=== PATIENT | female | born 1935 | race Caucasian/White ===

== ENCOUNTER 2017-09-13 20:08 | Emergency (ER) | payer MEDICARE, OTHER ==
[~2017-09-13] VITALS: Ht 162.6 cm; Wt 88.0 kg
[~2017-09-13 20:08] MED LIST: ADA30 PO; BAY PO; CLOPIDOGREL PO; CORE25 PO; GLU500 PO; NEU300 PO; NEXIUM PO; T3 PO; ZOC20 PO; [UNRECOGNIZED DRUG - OTHER] PO
[2017-09-13 20:16] VITALS: Ht 162.6 cm; Wt 88.0 kg
[2017-09-13 23:25] VITALS: BP 134/78
== END 2017-09-13 23:25 | disposition home or self-care (01) ==
LOC: ED 20:08
DX: I10 Essential (primary) hypertension (principal); E11.9 Type 2 diabetes mellitus without complications; Z86.73 Personal history of transient ischemic attack (TIA), and cerebral infarction without residual deficits

== ENCOUNTER 2019-02-16 11:53 | Inpatient (IN) | payer OTHER, MEDICARE ==
[~2019-02-16] VITALS: Ht 154.9 cm; Wt 84.9 kg
[2019-02-16 12:04] VITALS: Ht 154.9 cm; Wt 84.9 kg
--- NOTE | 2019-02-16 12:11 | NUR ---
BIB MEDIC S/P CP ONSET THIS AM AT HOME. PT GIVEN NTG IN FIELD. PT STATES VIA DAUGHTER MEDICAL ADMINISTRATIVE ASSISTANT THAT HER PAIN HAS IMPROVED. COMFORT MEASURES AND SUPPORTIVE CARE INITIATED. DR. BARBER AT FOR EVAL. AGENCY DOCUMENTATION DONE BY Staff Name/Title - :TRAMAINE LOVE RN [employer] User ID - :[id number] Agency Name - :CERTIFIED Time Documented - From - :0700 To - :1900
--- NOTE | 2019-02-16 12:20 | NUR ---
[facility] [phone] CARDIOLOGY (SEEN PRIOR, NOT REGULARLY) DR. COSMO LORENZO
[2019-02-16 12:33] LABS: PLATELET COUNT 147 x10^3mcL (130-400)
[2019-02-16 12:43] LABS: RED CELL DISTRIBUTION WIDTH 15.8 % (11.5-14.5)
[2019-02-16 12:49] LABS: CARBON DIOXIDE 21.9 mmol/L (21-32); CHLORIDE SERUM 107 mmol/L (98-107); CREATININE SERUM 0.8 mg/dL (0.6-1.0); GLUCOSE SERUM 126 mg/dL (74-106); POTASSIUM SERUM 3.8 mmol/L (3.5-5.1); SODIUM SERUM 142 mmol/L (136-145)
[2019-02-16 12:51] LABS: ALBUMIN 3.8 g/dL (3.4-5.0); ALKALINE PHOSPHATASE 65 U/L (46-116); ALT/SGPT 39 U/L (14-59); AST/SGOT 49 U/L (15-37); BILIRUBIN TOTAL 0.9 mg/dL (0.20-1.00)
[2019-02-16 13:04] LABS: BAND NEUTROPHIL 2 % (0-10); SEGMENTED NEUTROPHILS 78 % (37-75)
[2019-02-16 13:05] LABS: ATYPICAL LYMPH 0 %; BASOPHIL 0 % (0-2); MONOCYTE 4 % (0-7); PLATELET MORPHOLOGY PLATELETS DECREASED; rbc morphology (normal/abnorm) ABNORMAL (NORMAL)
--- NOTE | 2019-02-16 13:22 | NUR ---
PT RESTING COMFORTABLY AT THIS TIME. TO CONTINUE TO MONITOR. NO DISPO PRESENTLY.
--- NOTE | 2019-02-16 15:27 | NUR ---
ST CATH URINE OBTAINED AND SENT. TO CONTINUE TO MONITOR.,
[2019-02-16 15:42] LABS: UA SPECIFIC GRAVITY 1.015 (1.005-1.035); microscopic required? YES; urine erythrocyte 2+ (NEGATIVE)
--- NOTE | 2019-02-16 16:30 | NUR ---
PT SLEEPING AT THIS TIME. TO CONTINUE TO MONITOR.
--- NOTE | 2019-02-16 17:27 | NUR ---
REPORT CALLED TO DAMON BUSTAMANTE. PT REMAINS ASYMPTOMATI AT PRESENT. NO FURTHER CP THROUGHOUT ED COURSE.
[2019-02-16 18:02] VITALS: BP 126/56
--- NOTE | 2019-02-16 18:06 | NUR ---
RECEIVED PT FROM ED VIA KIMO. ORIENTED PT TO ROOM AND SURROUNDINGS. IV NOTED TO RFA PATENT AND INTACT. TELE 3 PLACED ON PT READING NSR. INSTRUCTED PT ON THE USE OF CALL LIGHT FOR ASSISTANCE. ENDORSD PT TO PRIMARY NURSE DAMON
--- NOTE | 2019-02-16 19:15 | NUR ---
CARE ASSUMED FROM OUTGOING RN. PT RESTING COMFORTABLY IN BED. NO ACUTE DISTRESS NOTED. EVEN AND UNLABORED RESPIRATIONS NOTED ON RA. ON TELE# 3 READING SR 90. IV PATENT AND INTACT RUNNING FLUIDS PER EMAR. DENIES ANY PAIN AT THIS TIME. BED IN LOWEST POSITION. SIDE RAILS UPX2. CALL LIGHT WITHIN REACH. WILL CONTINUE TO MONITOR.
[2019-02-16] MEDS ORDERED: CELEXA40 MG PO (20:04)
[2019-02-16] MEDS ORDERED: AVAPRO150 MG PO (20:06)
[2019-02-16 20:38] VITALS: BP 144/68
[2019-02-16] MEDS ORDERED: VITAMIN B12 PO (22:40)
--- NOTE | 2019-02-17 01:08 | NUR ---
PT RESTING COMFORTABLY IN BED. NO ACUTE DISTRESS NOTED. EVEN AND UNLABORED RESPIRATIONS ON RA. ON TELE# 3 READING SR 81. IV PATENT AND INTACT RUNNING FLUIDS PER EMAR. DENIES ANY PAIN AT THIS TIME. BED IN LOWEST POSITION. SIDE RAILS UPX2. CALL LIGHT WITHIN REACH. WILL CONTINUE TO MONITOR.
[2019-02-17 05:44] VITALS: BP 140/63
--- NOTE | 2019-02-17 06:26 | NUR ---
PT CONFUSED, REMOVED TELE MONITOR, ARM BAND, IV. NO BLEEDING NOTED TO IV SITE. IV CATHETER INTACT. REORIENTED PT TO HOSPITAL ENVIRONMENT. REAPPLIED TELE MONITOR. APPLIED NEW ARM BAND. IV STARTED TO RFA 22G WITH GOOD BLOOD RETURN AND FLUSHING WELL. FLUIDS RESTARTED PER EMAR. BED IN LOWEST POSITION. SIDE RAILS UPX2. CALL LIGHT WITHIN REACH. WILL CONTINUE TO MONITOR.
--- NOTE | 2019-02-17 06:42 | NUR ---
PT RESTING IN BED COMFORTABLY AT THIS TIME. NO ACUTE DISTRESS NOTED. ON TELE #3 READING SR. NEW IV PATENT AND INTACT, RUNNING FLUIDS PER EMAR. ALL NEEDS TENDED TO AND MET. ALL SCHEDULED MEDICATIONS GIVEN. BLOOD SUGAR CHECKED AND COVERED PER SLIDING SCALE. BED IN LOWEST POSITION. SIDE RAILS UPX2. CALL LIGHT WITHIN REACH. WILL ENDORSE TO ONCOMING SHIFT.
--- NOTE | 2019-02-17 08:00 | NUR ---
RECEIVED PATIENT FROM NIGHT NURSE. AWAKE, ALERT AND APPEARS ORIENTED. MONITOR SHOWING SINUS RHYTHM; RATE 80'S. NO ECTOPIES NOTED. IV INFUSING NS AT 125 ML/HR. PATIENT AMBULATED TO BATHROOM AND BACK TO BED. NOTED SOB ON EXERTION. NOW SITTING UP INB ED FOR BREAKFAST. DAUGHTER AT BEDSIDE. IV INFUSION RATE DECREASED TO 50 ML/HR PER NEW ORDERS.
[2019-02-17 08:42] LABS: BASOPHIL % 0.2 % (0-2)
[2019-02-17 08:46] LABS: CARBON DIOXIDE 23.6 mmol/L (21-32); CHLORIDE SERUM 108 mmol/L (98-107); CREATININE SERUM 0.8 mg/dL (0.6-1.0); GLUCOSE SERUM 133 mg/dL (74-106); POTASSIUM SERUM 3.6 mmol/L (3.5-5.1); SODIUM SERUM 142 mmol/L (136-145)
[2019-02-17 08:49] LABS: PLATELET COUNT 117 x10^3mcL (130-400); RED CELL DISTRIBUTION WIDTH 15.5 % (11.5-14.5)
[2019-02-17 08:52] VITALS: BP 127/60
--- NOTE | 2019-02-17 10:04 | NUR ---
AT 0900 - PATIENT SAYS THAT HER DAUGHTER GAVE HER HER MORNING MEDS. CALL PLACED FOR DAUGHTER TO VERIFY AND INFORM HER THAT PATIENT IS NOT TO TAKE OUTSIDE MEDS WHILE IN HOSPITAL. ALSO INSTRUCTED PATIENT ABOUT IMPORTANCE OF ONLY TAKING MEDS THAT ARE PRESCRIBED BY HOSPITAL DOCTORS AND ADMINSITERED BY HOSPITAL STAFF. IV FROM R EDELT FOUND TO HAVE FALLEN OUT. AT 0920 - IV RESITED IN R HAND AND IV INFUSING RESUMED AT 50ML/HR. PATIENT INSTRUCTED TO ALWAYS CALL FOR NRUSE AND NOT TO ATTEMPT GETTING OUT OF BED ALONE.
--- NOTE | 2019-02-17 10:30 | NUR ---
PHYSICAL THERPY WITH PATIENT.
[2019-02-17 11:56] VITALS: BP 132/46
--- NOTE | 2019-02-17 12:09 | NUR ---
SPOKE WITH SCOTT CRUZ AND RELAYED THE RESULTS OF THE BLOOD CULTURE.
--- NOTE | 2019-02-17 12:22 | NUR ---
PATIENT'S DAUGHTER NOW VISITING. SHE SAYS THAT SHE DID NOT GIVEN ANY MEDS TO HER MOTHER. SHE SAYS THAT PATIENT GETS CONFUSED. SO, SCHEDULED MORNIGN MEDS ADMINISTERED PER EMAR.
--- NOTE | 2019-02-17 14:10 | NUR ---
PATIENT STATUS CHANGED TO MED-SURG. PATIENT TAKEN OFF CARDIAC MONITORING.
[2019-02-17 16:48] VITALS: BP 125/64
--- NOTE | 2019-02-17 18:15 | NUR ---
AT 1600 - PATIENT PULLED OUT IV. RESITED IN RFA. WRAPPED AND SECURED. IV INFUSION OF NS RESUMED AT 50 ML/HR. AT 1625 - IV ROCEPHIN IN PROGRESS. PATIENT IS CALM AND PLEASANT BUT WITH PERIODS OF CONFUSION. AT 1735 - PATIENT PULLED OUT IV. WILL EAT DINNER NOW AND IV TO BE RESITED AFTER DINNER AND WNEH PATIENT GETS SITTER. AT 1810 - PATIENT IS ORIENTED TO PERSON AND PLACE. CALM BUT CONFUSED AND FORGETFUL. AMBULATES TO BATHROOM WITH ASSISTANCE. WILL ENDORSE CARE TO NIGHT NURSE.
--- NOTE | 2019-02-17 19:30 | NUR ---
PT IS A/O x2. CONFUSED WHERE SHE IS AT AND YEAR. MED SURG. DENIES ANY CHEST PAIN OR PRESSURE. PULSES ARE PRESENT. NO EDEMA NOTED. LUNGS CLEAR IN ALL FEILDS. ON RA, DENIES ANY SOB. EQUAL CHEST RISE AND FALL. NO SIGN OF RESP DISTRESS. BOWEL SOUNDS PRESENT X4. DENIES ABD PAIN OR DISTRESS. SKIN WARM AND INTACT. DENIES ANY PAIN AT THIS TIME. NO IV ACCESS AT THIS TIME. WILL ATTEMPT TO REINSERT AND IV. BED IS AT LOWEST SETTING. CALL LIGHT WITHIN REACH. BED ALARM ON. WILL CONTINUE TO MONITOR.
[2019-02-17 20:09] VITALS: BP 103/42
--- NOTE | 2019-02-18 00:27 | NUR ---
PT RESTING IN BED WITH BOTH EYES CLOSED. BREATHING EVEN AND UNLABORED. NO SIGN OF DISTRESS NOTED. BED IS AT LOWEST SETTING. CALL LIGHT WITHIN REACH. WILL CONTINUE TO MONITOR.
[2019-02-18 05:55] VITALS: BP 132/63
[2019-02-18 06:31] LABS: BASOPHIL % 0.4 % (0-2)
--- NOTE | 2019-02-18 06:33 | NUR ---
PT IS RESTING IN BED. DENIES ANY PAIN OR DISTRESS. PT AMBULATED TO THE BATHROOM WITH PATRICK MITTAL. PT TOLERATED WELL. SLIGHT SWAYING GAIT NOTED. PT WAS SALINE LOCKED AT THIS TIME D/T PT PULLING ON LINE. WILL RECONNECT ONCE PT AGREES NOT TO PULL ON LINE AND PULL OUT IV. NO ACUTE EVENT OCCURED AT NIGHT. BED IS AT LOWEST SETTING. CALL LIGHT WITHIN REACH. BED ALARM IS ON. WILL ENDORSE TO AM NURSE.
[2019-02-18 06:46] LABS: CALCIUM 8.3 mg/dL (8.5-10.1); CARBON DIOXIDE 27.5 mmol/L (21-32); CHLORIDE SERUM 108 mmol/L (98-107); CREATININE SERUM 0.6 mg/dL (0.6-1.0); GLUCOSE SERUM 120 mg/dL (74-106); POTASSIUM SERUM 3.2 mmol/L (3.5-5.1); SODIUM SERUM 145 mmol/L (136-145)
[2019-02-18 06:49] LABS: PLATELET COUNT 100 x10^3mcL (130-400); RED CELL DISTRIBUTION WIDTH 15.9 % (11.5-14.5)
--- NOTE | 2019-02-18 07:15 | NUR ---
PT RECIEVED RESTING IN BED WITH NO C/O DISTRESS OR SOB. A/O X3. NO MEDRANO OR DIZZINESS NOTED. LUNGS CTAB, IV NOT INTACT AND NOT PATENT IN LAC, REMOVED WITH CATHETER IN PLACE, NO REDNESS OR INFLAMMATIONS NOTED. NEW IV STARTED IN RIGHT HAND 22 GUAGE. NO REDNESS OR INFLAMMATION NOTED. NS 50ML/HR RUNNING.SAFETY PRECAUTIONS IN PLACE, CALL LIGHT WITHIN REACH, WILL MONITOR.
[2019-02-18 08:23] VITALS: BP 117/69
--- NOTE | 2019-02-18 11:59 | NUR ---
ANTHONY PARKER AWARE OF PT POTTASIUM LEVEL3.2, NEW ORDER RECIEVEDAND CARRIED OUT.
--- NOTE | 2019-02-18 13:06 | NUR ---
NikkiT. NOTES PATIENT REFUSED TO BE SEEN BY P.T., STATES NOT FEELING AND TOO TIRED, ATTEMPTED MULTIPLE TIMES FOR PATIENT TO PARTICIPATE BUT CONTINUES TO REFUSED, PATIENT IS A/Ox3.
[2019-02-18 16:45] VITALS: BP 131/51
--- NOTE | 2019-02-18 19:30 | NUR ---
PT IS A/O x2. ABLE TO COMMUNICATE NEEDS AND FOLLOW SIMPLE COMMANDS. ON MED SURG. DENIES ANY CHEST PAIN OR PRESSURE. PULSES ARE PRESENT. NO EDEMA NOTED. LUNGS CLEAR IN ALL FEILDS. ON RA, DENIES ANY SOB. EQUAL CHEST RISE AND FALL. NO SIGN OF RESP DISTRESS. BOWEL SOUND PRESENT X4. DENIES ANY ABD PAIN OR DISTRESS. SKIN WARM AND INTACT. DENIES ANY PAIN AT THIS TIME. IV ON RH INTACT AND PATENT. NO SIGN OF IRRITATION OR INFILTRATION NOTED. BED IS A LOWEST SETTING. CALL LIGHT WITHIN REACH. BED ALARM IS ON FOR PT SAFETY. WILL CONTINUE TO MONITOR.
--- NOTE | 2019-02-18 20:04 | NUR ---
PT STABLE AT THIS TIME WITH NO C/O PAIN, DISTRESS, OR SOB. TOLERATED ALL CARES WELL.IV INTACT AND PATENT WITH NO REDNESS OR INFLAMMATION NOTED. SAFETY PRECAUTIONS IN PLACE, CALL LIGHT WITHIN REACH, WILL ENDORSE CARE TO NIGHT NURSE.
[2019-02-18 21:38] VITALS: BP 128/75
--- NOTE | 2019-02-19 01:07 | NUR ---
PT IS RESTING IN BED. STARTED PULLING ON IV SO WAS SALINE LOCKED AT THIS TIME. RE-EDUCATED PT ON NOT TO PULL ON LINES. DENIES ANY PAIN OR DISTRESS. BED IS AT LOWEST SETTING. CALL LIGHT WITHIN REACH. WILL CONTINUE TO MONTIOR.
[2019-02-19 06:03] VITALS: BP 122/59
--- NOTE | 2019-02-19 06:32 | NUR ---
PT RESTING IN BED WITH BOTH EYES CLOSED. BREATHING EVEN AND UNLABORED. NO SIGN OF DISTRESS NOTED. IV INTACT AND PATENT. BED IS AT LOWEST SETTING. CALL LIGHT WITHIN REACH. WILL ENDORSE TO AM NURSE.
[2019-02-19 06:56] LABS: CALCIUM 8.6 mg/dL (8.5-10.1); CARBON DIOXIDE 22.4 mmol/L (21-32); CHLORIDE SERUM 111 mmol/L (98-107); CREATININE SERUM 0.7 mg/dL (0.6-1.0); GLUCOSE SERUM 126 mg/dL (74-106); POTASSIUM SERUM 3.6 mmol/L (3.5-5.1); SODIUM SERUM 144 mmol/L (136-145)
[2019-02-19 07:09] LABS: BASOPHIL % 0.4 % (0-2)
--- NOTE | 2019-02-19 07:40 | NUR ---
SEEN IN BED AWAKE, ALERT, ORIENTED X3. PLEASANT. SPEAK SOME LAO. DENIES PAIN. BREATHING E/U ON ROOM AIR. GEN BODY WEAKNESS, BRP WITH ASSISTANCE. STATED USES WALKER TO AMBULATE AT HOME AND LIVES WITH HER DAUGHTER. IVF NS TO RT HAND INTACT AND INFUSING WELL. ON RECEPHIN IV Q 24HRS. PLAN OF CARE INFORMED, CALL LIGHT PLACED WITHIN EASY REACH, SIDERAILS UP X2.
[2019-02-19 07:41] LABS: PLATELET COUNT 120 x10^3mcL (130-400); RED CELL DISTRIBUTION WIDTH 15.8 % (11.5-14.5)
[2019-02-19 08:10] VITALS: BP 128/71
--- NOTE | 2019-02-19 09:53 | NUR ---
SCHEDULED AM MEDS GIVEN. NO RESP DISTRESS NOTED. DENIES PAIN.
--- NOTE | 2019-02-19 12:12 | NUR ---
PATIENT'S DAUGHTER AT BEDSIDE. UPDATED CURRENT CONDITION AND PLAN OF CARE.
--- NOTE | 2019-02-19 15:00 | NUR ---
RESTING IN BED WATCHING TV. UPDATED PLAN OF CARE, PLEASANT. WILL CONTINUE TO MONITOR.
[2019-02-19 16:19] VITALS: BP 144/69
--- NOTE | 2019-02-19 17:29 | NUR ---
APPEARS CONFUSED, PULLED OUT IV, NO BLEEDING, DRSG APPLIED. REORIENTATION PROVIDED. PATIENT'S DAUGHTER ON THE PHONE TALKING TO PATIENT AT THIS TIME.
--- NOTE | 2019-02-19 18:03 | NUR ---
RECEIVED PT. PT IS CONFUSED AND DISORIENTED. REQUESTING TO GO HOME. PT IS AMBULATING DOWN THE HALLWAY, UNSTEADY GAIT NOTED. ASSISTANCE IS BEING PROVIDED BY THE PROFESSIONAL SKATER. PT BROUGHT BACK TO ROOM. REORIENTED PT TO ROOM AND SURROUNDINGS. PT SCREAMING AND CLAIMING SHE "IS NOT IN HER ROOM". INFORMED PT THAT SHE IS IN A HOSPITAL AND NOT IN HER HOUSE. PT REFUSING TO BELIEVE SHE IS IN A HOSPITAL. WILL CONTINUE TO MONITOR. CHARGE NURSE MADE AWARE
--- NOTE | 2019-02-19 19:05 | NUR ---
RECEIVED PT FROM PREVIOUS SHIFT NURSE. PT ORIENTED TO SELF, KINYARWANDA SPEAKING. MED SURG PT, DENIES CP/PRESSURE. NO SOB/DIFFICULTY BREATHING, ON RA. AMBULATORY WITH ASSIST. NO IV ACCESS AT THIS TIME, WILL ATTEMPT TO PLACE NEW IV. BED IN LOWEST POSITION. CALL LIGHT WITHIN REACH. WILL CONTINUE TO MONITOR.
[2019-02-19 21:00] VITALS: BP 131/67
--- NOTE | 2019-02-20 00:57 | NUR ---
PT RESTING IN BED. RR EVEN AND UNLABORED. IN NO ACUTE DISTRESS. CALL LIGHT WITHIN REACH. BED IN LOWEST POSITION. WILL CONTINUE TO MONITOR.
--- NOTE | 2019-02-20 05:05 | NUR ---
ATTEMPTED TO PLACE NEW IV, PT CONTINUES TO REFUSE. DR. FITCH MADE AWARE.
[2019-02-20 06:11] VITALS: BP 137/60
--- NOTE | 2019-02-20 07:39 | NUR ---
SLEEPING BUT AROUSABLE. IN NO RESP. DISTRESS.VS WNL. NO IV ACCESS PER REPORT. PT REFUSED. NO C/O PAIN OR DISCOMFORT AT THIS TIME. CALL LIGHT WITHIN REACH. SAFETY MEASURES MAINTAINED. WILL CONTINUE WITH PLAN OF CARE.
[2019-02-20 08:15] VITALS: BP 131/69
--- NOTE | 2019-02-20 11:09 | NUR ---
DAUGHTER AT BEDSIDE. UPDATED ON PLAN OF CARE. PT TO BE DC'D SOMETIMES THIS AFTERNOON. PT/DAUGHTER AGRRED WITH PLAN.
[2019-02-20] MEDS ORDERED: LEVOFLOXACIN500 M1 PO (12:10)
[2019-02-20 13:20] VITALS: BP 131/69
--- NOTE | 2019-02-20 14:30 | NUR ---
PT DC'D HOME WITH DAUGHTER IN NO RESP. DISTRESS. AWAKE AND ALERT. VS STABLE. NO C/O PAIN OR DISCOMFORT. DC INSTRUCTIONS REVIEWED WITH PT AND DAUGHTER. RX GIVEN. PT DID NOT HAVE ANY IV ACCESS AT THE TIME OF DC. PERSONAL BELONGINGS TAKEN HOME.
--- NOTE | 2019-02-20 15:05 | NUR ---
PHYSICAL THERAPY DAILY NOTES CO-SIGN All documentation done by the Sports Trainer for 02/20/19 has been reviewed. I agree with the documentation. Reviewed/Co-Signed by: Lesa Head PT Documentation Done by:NAVNEET CALDERA PTA
== END 2019-02-20 13:46 | disposition home or self-care (01) | DRG 720 ==
LOC: ED 11:53 → DU 16:06 → MU 16:06 → DU 17:51 → MU 02-17 14:09
PROVIDERS: Emergency Medicine; Internal Medicine; ADMIT General Practice
DX: A41.9 Sepsis, unspecified organism (principal); E11.9 Type 2 diabetes mellitus without complications; N39.0 Urinary tract infection, site not specified; I10 Essential (primary) hypertension; D72.819 Decreased white blood cell count, unspecified; Z96.659 Presence of unspecified artificial knee joint; Z79.82 Long term (current) use of aspirin; Z79.84 Long term (current) use of oral hypoglycemic drugs; Z86.73 Personal history of transient ischemic attack (TIA), and cerebral infarction without residual deficits
CPT/HCPCS: 82962; 97116-GP; 97530-GP; G0378; J0696; J3490; J7030; Q0092